=== PATIENT | male | born 1960 | race Caucasian/White ===

== ENCOUNTER 2018-10-18 16:46 | Observation (INO) | payer MEDICAID ==
[~2018-10-18] VITALS: Ht 175.3 cm; Wt 117.8 kg
[2018-10-18] MEDS ORDERED: MORPHINE SULFATE 4 MG/ML, 1ML IVPush PRN (17:30)
[2018-10-18 17:36] LABS: BASOPHILS # (AUTO) 0.04 x10^3/uL (0-0.1); BASOPHILS % (AUTO) 0 % (0-1); EOSINOPHILS # (AUTO) 0.52 x10^3/uL (0-0.4); EOSINOPHILS % (AUTO) 6 % (1-7); LYMPHOCYTES # (AUTO) 2.15 x10^3/uL (1-3.4); LYMPHOCYTES % (AUTO) 23 % (22-44); MD NO; MEAN CORPUSCULAR HEMOGLOBIN 31.7 pg (27.5-34.5); MEAN CORPUSCULAR HGB CONC 34.2 g/dL (33.2-36.2); MEAN CORPUSCULAR VOLUME 92.8 fL (81-97); MEAN PLATELET VOLUME 7.8 fL (7.4-10.4); MONOCYTES # (AUTO) 0.69 x10^3/uL (0.2-0.8); MONOCYTES % (AUTO) 7 % (2-9); NEUTROPHILS # (AUTO) 6.11 x10^3/uL (1.8-6.8); NEUTROPHILS % (AUTO) 64 % (42-75); PLATELET COUNT 260 x10^3/uL (130-400); RED BLOOD COUNT 5.34 x10^6/uL (4.38-5.82); RED CELL DISTRIBUTION WIDTH 14.5 % (9.4-14.8)
--- NOTE | 2018-10-18 17:45 | NUR ---
ASSUMED CARE OF PT AT THIS TIME. PT C/O DIZZINESS FOR 2 WEEKS WITH WORSENING DIZZINESS TODAY. PT ALSO REPERTS EPIGASTRIC ABD PAIN TO LEFT CHEST FOR DAYS. PT DENIES N/V.
[2018-10-18 17:46] LABS: ALANINE AMINOTRANSFERASE 176 U/L (12-78); ALBUMIN 3.8 g/dL (3.4-5.0); ANION GAP 7 mmol/L (5-15); CALCIUM 8.9 mg/dL (8.5-10.1); CHLORIDE 110 mmol/L (98-107); CREATININE 1.25 mg/dL (0.7-1.3)
[2018-10-18] MEDS ORDERED: ASPIRIN 81 MG TABLET CHEW ONE (17:47)
[2018-10-18] MEDS ORDERED: MORPHINE SULFATE 4 MG/ML, 1ML ONE (17:47)
[2018-10-18] MEDS ORDERED: ONDANSETRON 2MG/ML, 2ML ONE (17:47)
[2018-10-18 17:50] LABS: ALKALINE PHOSPHATASE 66 U/L (45-117); BILIRUBIN,TOTAL 0.8 mg/dL (0.2-1.0); TOTAL PROTEIN 7.8 g/dL (6.4-8.2); TROPONIN I < 0.015 ng/mL (0.000-0.045)
[2018-10-18] MEDS ORDERED: ONDANSETRON 2MG/ML, 2ML IVPush ONE (18:00)
[2018-10-18] MEDS ORDERED: ASPIRIN 81 MG TABLET CHEW PO ONE (18:00)
--- NOTE | 2018-10-18 18:45 | NUR ---
MEAL TRAY ORDERED FOR PT. WAITING FOR ADMIT ORDERS.
--- NOTE | 2018-10-18 18:58 | NUR ---
REPORT TO JI BUENO.
--- NOTE | 2018-10-18 19:02 | NUR ---
RECEIVED BS REPORT FROM XIMENA BRANCH TO ASSUME PT. CARE. DINNER TRAY PROVIDED TO PT. MED REC BEING COMPLETED AT THIS TIME. [facility] WAS IN TO EVAL PT. FOR ADMISSION. CONTINUOUS PULSE OX, B/P, AND HEART MONITORS ARE IN PLACE. CALL LIGHT IN REACH. ALL SAFETY MEASUES OBSERVED. FAMILY AT BS FOR SUPPORT.
[2018-10-18] MEDS ORDERED: ATOR20TA PO (19:06)
[2018-10-18] MEDS ORDERED: ALLO300T PO (19:06)
[2018-10-18] MEDS ORDERED: MECL-76 PO (19:06)
[2018-10-18] MEDS ORDERED: TRIAMCINOLONE CREAM TP (19:06)
[2018-10-18] MEDS ORDERED: LISI40TA PO (19:06)
[2018-10-18] MEDS ORDERED: ONDANSETRON ODT 4 MG PO PRN (19:30)
[2018-10-18] MEDS ORDERED: ACETAMINOPHEN 325 MG TABLET PO PRN (19:30)
[2018-10-18] MEDS ORDERED: BISACODYL 10 MG SUPP PR PRN (19:30)
[2018-10-18] MEDS ORDERED: morphine SULFATE 10 MG/ML, 1ML IVPush PRN (19:30)
[2018-10-18] MEDS ORDERED: NITROGLYCERIN 0.4 MG BOTTLE (25 TABS) SL PRN (19:30)
[2018-10-18] MEDS ORDERED: POLYETHYLENE GLYCOL 17 GM PACKET PO PRN (19:30)
--- NOTE | 2018-10-18 20:34 | NUR ---
AWAITING HOSPITAL BED TO PLACE PT. ON. PT. PROVIDED WITH PILLOW AND ASSITED WITH REPOSITIONING IN [facility] FOR [facility]. FAMILY REMAINS AT FOR SUPPORT. PT. ATE 100% OF DINNER TRAY PROVIDED. CALL LIGHT IN REACH. SAFETY MEASURES MAINTAINED.
--- NOTE | 2018-10-18 20:43 | NUR ---
REPORT TO XIMENA MASON TO ASSUME PT. CARE AT THIS TIME.
[2018-10-18] MEDS ORDERED: HEPARIN 5,000 UNITS/ML, 1ML ONE (20:56)
[2018-10-18] MEDS: SODIUM CHLORIDE FLUSH 10ML SYR IVF SCH (21:00)
[2018-10-18] MEDS: HEPARIN 5,000 UNITS/ML, 1ML SQ SCH (21:03)
[2018-10-18 23:17] LABS: TROPONIN I < 0.015 ng/mL (0.000-0.045)
--- NOTE | 2018-10-18 23:29 | NUR ---
VITALS UPDATED. POC DISCUSSED. PT DENIES FURTHER NEEDS AT THIS TIME. CALL LIGHT ON LAP.
[2018-10-19 00:55] VITALS: BP 102/69
[2018-10-19 01:06] VITALS: BP 102/69
[2018-10-19 04:50] LABS: BASOPHILS # (AUTO) 0.05 x10^3/uL (0-0.1); BASOPHILS % (AUTO) 1 % (0-1); EOSINOPHILS # (AUTO) 0.62 x10^3/uL (0-0.4); EOSINOPHILS % (AUTO) 8 % (1-7); LYMPHOCYTES # (AUTO) 2.25 x10^3/uL (1-3.4); LYMPHOCYTES % (AUTO) 27 % (22-44); MD NO; MEAN CORPUSCULAR HGB CONC 34.2 g/dL (33.2-36.2); MEAN CORPUSCULAR VOLUME 93.5 fL (81-97); MONOCYTES # (AUTO) 0.69 x10^3/uL (0.2-0.8); MONOCYTES % (AUTO) 8 % (2-9); NEUTROPHILS # (AUTO) 4.66 x10^3/uL (1.8-6.8); NEUTROPHILS % (AUTO) 56 % (42-75); PLATELET COUNT 209 x10^3/uL (130-400); RED BLOOD COUNT 4.93 x10^6/uL (4.38-5.82); RED CELL DISTRIBUTION WIDTH 14.6 % (9.4-14.8)
[2018-10-19 05:00] LABS: ALBUMIN 3.4 g/dL (3.4-5.0); ANION GAP 5 mmol/L (5-15); CALCIUM 8.6 mg/dL (8.5-10.1); CHLORIDE 111 mmol/L (98-107)
[2018-10-19 05:05] LABS: ALANINE AMINOTRANSFERASE 169 U/L (12-78); ALKALINE PHOSPHATASE 59 U/L (45-117); BILIRUBIN,TOTAL 0.5 mg/dL (0.2-1.0); CHOL/HDL RATIO 6.3; CHOLESTEROL, TOTAL 176 mg/dL (140-239); CREATININE 1.35 mg/dL (0.7-1.3); HDL CHOL % 16 % (26-37); HDL CHOLESTEROL (DIRECT) 28 mg/dL (40-60); LDL CHOLESTEROL,CALCULATED 94 mg/dL (54-169); LDL/HDL RATIO 3.4 (0.5-3.0); TOTAL PROTEIN 7.1 g/dL (6.4-8.2); TRIGLYCERIDES 270 mg/dL (50-200); TROPONIN I < 0.015 ng/mL (0.000-0.045); VLDL CHOLESTEROL 54 mg/dL (0-25)
[2018-10-19] MEDS: HEPARIN 5,000 UNITS/ML, 1ML SQ SCH ×2 (05:49→14:04)
[2018-10-19] MEDS ORDERED: ASPIRIN 325 MG TABLET EC PO SCH (06:00)
[2018-10-19] MEDS ORDERED: ASPIRIN 81 MG TABLET EC PO SCH (06:00)
[2018-10-19 07:15] VITALS: BP 133/88
[2018-10-19] MEDS: SODIUM CHLORIDE FLUSH 10ML SYR IVF SCH (07:19)
[2018-10-19] MEDS ORDERED: REGADENOSON 0.4 MG/5 ML SYRINGE ONE (08:42)
[2018-10-19] MEDS ORDERED: SENNA/DOCUSATE TABLET PO SCH (09:00)
[2018-10-19 14:11] VITALS: BP 128/91
== END 2018-10-19 17:53 | disposition home or self-care (01) ==
LOC: ED 18:03 → EDIP 18:08 → INTOOBSV 18:08 → ED 18:20 → 5SO 10-19 00:46
PROVIDERS: ADMIT Family Medicine; ATTEND Family Medicine
DX: R07.89 Other chest pain (principal); R42 Dizziness and giddiness; I10 Essential (primary) hypertension; E78.5 Hyperlipidemia, unspecified; E66.9 Obesity, unspecified; M19.049 Primary osteoarthritis, unspecified hand; Z82.49 Family history of ischemic heart disease and other diseases of the circulatory system
CPT/HCPCS: 36415; 71046; 76700; 78452; 80053; 80061; 80074; 84484; 85025; 93005; 93017; 93306; 96372; 96374; 96375; 99284; A9502; C9898; G0378; J1644; J2405; J2785